=== PATIENT | male | born 1960 | race Caucasian/White ===

== ENCOUNTER 2019-09-18 20:47 | Emergency (ER) | payer OTHER ==
[2019-09-18 20:59] VITALS: BP 165/87; PULSE 74; TEMP 97.4; BMI 32.3
[2019-09-18] MEDS ORDERED: LIDOCAINE HCL 1%, 10 MG/ML (50 mL VIAL) SQ ONE (21:18)
[2019-09-18] MEDS ORDERED: LIDOCAINE HCL 1%, 10 MG/ML (20ML VIAL) ONE (21:25)
--- NOTE | 2019-09-18 22:14 | PDOC ---
History of Present Illness - General Chief Complaint: Abscess Boil Stated Complaint: SENT BY PCP/[facility] Time Seen by Provider: 09/18/19 21:13 - History of Present Illness Initial Comments: 09/18/19 22:10 58-year-old male without comorbidities presents for evaluation of an abscess on his left lateral thigh which is been there for about a week he has been on Keflex without relief he states it is getting worse. Past History - Past Medical History Allergies/Adverse Reactions: Allergies Allergy/AdvReac Type Severity Reaction Status Date / Time diclofenac Allergy Verified 09/18/19 20:57 Home Medications: Ambulatory Orders Sulfamethoxazole/Trimethoprim [Bactrim Ds -] 1 tab PO BID #14 tablet 09/18/19 COPD: No - Psycho Social/Smoking Cessation Hx Smoking History: Never smoked Hx Alcohol Use: No Drug/Substance Use Hx: No Review of Systems - Review of Systems Constitutional: No: Fever Integumentary: Yes: See HPI *Physical Exam - Vital Signs Last Vital Signs Temp Pulse Resp BP Pulse Ox 97.4 F L 74 20 165/87 96 09/18/19 20:57 09/18/19 20:57 09/18/19 20:57 09/18/19 20:57 09/18/19 20:57 - Physical Exam Comments: 09/18/19 22:11 There is about a 6 cm circumferential area of erythema with a ulcerated center with the purulent drainage. There is no fluctuance the area is indurated around the area of the ulcer. The remainder of the thigh and calf are soft and nontender Medical Decision Making - Medical Decision Making 09/18/19 22:11 This appears to be an abscess which has began to drain. The area is ulcerated. The area was anesthetized aseptically with 15 cc of 1% lidocaine the purulent material was removed and the area was scraped to its base and allowed to bleed. A wet-to-dry dressing was placed this was tolerated well Wet-to-dry dressing changes twice daily follow-up with general surgery patient was also placed on Bactrim in addition to the Keflex he is already taking. We will follow-up with him in the ER in 2 days and a referral to general surgery was also given. Wet-to-dry dressing changes twice daily Discharge - Discharge Information Problems reviewed: Yes Clinical Impression/Diagnosis: Abscess Condition: Stable Disposition: HOME - Admission No - Additional Discharge Information Prescriptions: Sulfamethoxazole/Trimethoprim [Bactrim Ds -] 1 tab PO BID #14 tablet - Follow up/Referral Referrals: Paco Tee MD [Staff Physician] - - Patient Discharge Instructions Patient Printed Discharge Instructions: DI for Incision and Drainage of a Skin Abscess Additional Instructions: Tylenol as directed for pain. Please start the antibiotic this evening and take the medication as directed. Return to the emergency room in 2 days for wound check. Sooner for problems develop. Wet-to-dry dressing changes as you was shown in the emergency room twice a day for the next 2 days. Also follow- up with general surgery in 3 to 4 days for further evaluation and treatment options. - Post Discharge Activity
== END 2019-09-18 22:21 | disposition home or self-care (01) ==
LOC: JERFT 20:47
PROC: 3E023BZ Introduction of Anesthetic Agent into Muscle, Percutaneous Approach (ICD-10-PCS; principal; 2019-09-18)
PROC: 0H9JXZZ Drainage of Left Upper Leg Skin, External Approach (ICD-10-PCS; 2019-09-18)
DX: L02.416 Cutaneous abscess of left lower limb (principal); L97.121 Non-pressure chronic ulcer of left thigh limited to breakdown of skin; Z88.8 Allergy status to other drugs, medicaments and biological substances
CPT/HCPCS: 99281-25

== ENCOUNTER 2019-09-20 11:53 | Emergency (ER) | payer OTHER ==
[2019-09-20 12:21] VITALS: BP 153/78; PULSE 62; TEMP 97.7; BMI 32.3
--- NOTE | 2019-09-20 12:38 | PDOC ---
History of Present Illness - General Chief Complaint: Revisit,Wound Recheck Stated Complaint: ABSCESS LF HIP Time Seen by Provider: 09/20/19 12:38 Past History - Past Medical History Allergies/Adverse Reactions: Allergies Allergy/AdvReac Type Severity Reaction Status Date / Time diclofenac Allergy Verified 09/20/19 12:21 Home Medications: Ambulatory Orders Sulfamethoxazole/Trimethoprim [Bactrim Ds -] 1 tab PO BID #14 tablet 09/18/19 COPD: No - Surgical History Appendectomy: Yes Cholecystectomy: (gallstones) - Psycho Social/Smoking Cessation Hx Smoking History: Never smoked Information on smoking cessation initiated: No Hx Alcohol Use: No Drug/Substance Use Hx: No *Physical Exam - Vital Signs Last Vital Signs Temp Pulse Resp BP Pulse Ox 97.7 F 62 18 153/78 97 09/20/19 12:18 09/20/19 12:18 09/20/19 12:18 09/20/19 12:18 09/20/19 12:18
--- NOTE | 2019-09-20 12:59 | PDOC ---
History of Present Illness - General Chief Complaint: Revisit,Wound Recheck Stated Complaint: ABSCESS LF HIP Time Seen by Provider: 09/20/19 12:38 - History of Present Illness Initial Comments: 09/20/19 12:54 58 y/o M presents for evaluation of a wound check on the lateral aspect of the L thigh, he states he is feeling better, no systemic symptoms Past History - Past Medical History Allergies/Adverse Reactions: Allergies Allergy/AdvReac Type Severity Reaction Status Date / Time diclofenac Allergy Verified 09/20/19 12:21 Home Medications: Ambulatory Orders Sulfamethoxazole/Trimethoprim [Bactrim Ds -] 1 tab PO BID #14 tablet 09/18/19 COPD: No - Surgical History Appendectomy: Yes Cholecystectomy: (gallstones) - Psycho Social/Smoking Cessation Hx Smoking History: Never smoked Information on smoking cessation initiated: No Hx Alcohol Use: No Drug/Substance Use Hx: No Review of Systems - Review of Systems Constitutional: No: Fever *Physical Exam - Vital Signs Last Vital Signs Temp Pulse Resp BP Pulse Ox 97.7 F 62 18 153/78 97 09/20/19 12:18 09/20/19 12:18 09/20/19 12:18 09/20/19 12:18 09/20/19 12:18 - Physical Exam Comments: 09/20/19 12:54 There is mild erythema and induration about the edges of the wound. The middle of the wound is granulating well. The thigh and calf are soft and no tender, NVID Medical Decision Making - Medical Decision Making 09/20/19 12:55 Wound is healing well. Continue with wet to dry dressing changes and PO ABX and f/u with general surgery in 2-3 days for a wound check Discharge - Discharge Information Problems reviewed: Yes Clinical Impression/Diagnosis: Visit for wound check Condition: Improved Disposition: HOME - Admission No - Follow up/Referral Referrals: Paco Tee MD [Staff Physician] - - Patient Discharge Instructions Additional Instructions: Continue with antibiotics as prescribed. Wet to dry dressing changes twice daily for the next 3 days, then go to once a day in the morning and leave the wound open to air as much as possible. Return to the emergency room should symptoms worsen. DO NOT APPLY ANY OINTMENTS OR CREAMS. Without fail, please follow up with general surgery in 2-3 days for further evaluation and treatment options. - Post Discharge Activity
== END 2019-09-20 13:05 | disposition home or self-care (01) ==
LOC: JERFT 11:53 → JER 11:53 → JERFT 13:05
DX: Z48.00 Encounter for change or removal of nonsurgical wound dressing (principal); Z88.8 Allergy status to other drugs, medicaments and biological substances
CPT/HCPCS: 99281-25

== ENCOUNTER 2020-11-12 17:00 | Inpatient (IN) | payer OTHER ==
[2020-11-12] MEDS ORDERED: morphine CARPU-JECT 2 MG/1 ML DISP.SYRIN IVPUSH ONE (18:12)
[2020-11-12] MEDS ORDERED: LACTATED RINGERS SOLUTION 1000 ML INFUS.BAG IV ONE (18:12)
[2020-11-12] MEDS ORDERED: MORPHINE SULFATE 2 MG/ML VIAL ONE (18:20)
[2020-11-12 18:53] LABS: HEMATOCRIT 40.7 % (35.4-49); HEMOGLOBIN 13.9 GM/dL (11.7-16.9); MCH 29.1 pg (25.7-33.7); MCHC 34.1 g/dl (32.0-35.9); MEAN CELL VOLUME 85.5 fl (80-96); MEAN PLT VOLUME 7.8 fl (7.5-11.1); PLATELET COUNT 474 K/MM3 (134-434); RBC 4.76 M/mm3 (4.00-5.60); RDW 13.3 % (11.9-15.9); WHITE BLOOD COUNT 9.7 K/mm3 (4.0-10.0)
[2020-11-12 19:00] LABS: INR 1.14 (0.83-1.09)
[2020-11-12 19:03] LABS: ACTIVATED PTT 27.7 SECONDS (25.2-36.5)
[2020-11-12 19:14] LABS: POTASSIUM 4.6 mmol/L (3.5-5.1)
[2020-11-12 19:15] LABS: CALCIUM 8.5 mg/dL (8.5-10.1)
[2020-11-12 19:16] LABS: ALBUMIN 2.8 g/dl (3.4-5.0); BLOOD UREA NITROGEN 16.8 mg/dL (7-18)
[2020-11-12 19:21] LABS: BILIRUBIN,TOTAL 0.2 mg/dL (0.2-1); TOT PROT 7.6 g/dl (6.4-8.2)
[2020-11-12] MEDS ORDERED: HEPARIN NA (PORCINE) 5,000 UNITS/ML 1ML VIAL IVPUSH PRN ×2 (20:51)
[2020-11-12] MEDS ORDERED: HEPARIN - 25,000 UNIT in SODIUM CHLORIDE 495 ML IV SCH (21:00)
[2020-11-12] MEDS ORDERED: HEPARIN INFUSION - 25,000 UNITS/500 ML INFUS.BAG IVPB ONE (22:42)
[2020-11-12] MEDS ORDERED: DEXAMETHASONE SOD PHOSPHATE 10 MG/1 ML VIAL IVPUSH ONE (23:10)
[2020-11-13] MEDS ORDERED: DEXAMETHASONE SOD PHOSPHATE 10 MG/1 ML VIAL ONE ×2 (00:34→10:05)
[2020-11-13 06:36] LABS: BASO % 0.2 % (0-2.0); EOS % 0.3 % (0-4.5); HEMATOCRIT 40.2 % (35.4-49); LYMPH % 7.1 % (8-40); MCH 29.4 pg (25.7-33.7); MCHC 34.8 g/dl (32.0-35.9); MEAN CELL VOLUME 84.5 fl (80-96); MEAN PLT VOLUME 7.6 fl (7.5-11.1); MONO % 2.7 % (3.8-10.2); NEUT % 89.7 % (42.8-82.8); PLATELET COUNT 489 K/MM3 (134-434); RBC 4.76 M/mm3 (4.00-5.60); RDW 13.4 % (11.9-15.9); WHITE BLOOD COUNT 7.9 K/mm3 (4.0-10.0)
[2020-11-13 06:59] LABS: INR 1.2 (0.83-1.09); PROTHROMBIN TIME (PATIENT) 14.7 SEC (9.7-13.0)
[2020-11-13 07:01] LABS: ACTIVATED PTT 30.2 SECONDS (25.2-36.5)
[2020-11-13 07:16] LABS: ALBUMIN 2.8 g/dl (3.4-5.0); BLOOD UREA NITROGEN 14.2 mg/dL (7-18); CALCIUM 8.9 mg/dL (8.5-10.1); MAGNESIUM 2.2 mg/dL (1.8-2.4)
[2020-11-13 07:19] LABS: CREATININE 0.8 mg/dL (0.55-1.3); PHOSPHOROUS 3.9 mg/dL (2.5-4.9)
[2020-11-13 07:21] LABS: TOT PROT 7.6 g/dl (6.4-8.2)
[2020-11-13] MEDS ORDERED: HEPARIN NA (PORCINE) 5,000 UNITS/ML 1ML VIAL ONE ×5 (07:47→16:33)
[2020-11-13] MEDS ORDERED: CHOLECALCIFEROL (VIT D3) 1,000 UNIT (25 MCG) TABLET PO SCH (10:00)
[2020-11-13] MEDS ORDERED: ZINC SULFATE 220 MG CAPSULE (FP) PO SCH (10:00)
[2020-11-13] MEDS ORDERED: DEXAMETHASONE SOD PHOSPHATE 10 MG/1 ML VIAL IVPUSH SCH (10:00)
[2020-11-13] MEDS ORDERED: FAMOTIDINE 20 MG/50 ML IVPB 20 MG/50 ML MG IVPB SCH (10:00)
[2020-11-13] MEDS ORDERED: DEXAMETHASONE SOD PHOSPHATE 20 MG/5 ML VIAL IVPB SCH (10:00)
[2020-11-13] MEDS ORDERED: ASCORBIC ACID 500 MG TABLET (FP) PO SCH (10:00)
[2020-11-13] MEDS ORDERED: FAMOTIDINE 20 MG/50 ML IVPB 20 MG/50 ML MG IVPB ONE (10:05)
[2020-11-13] MEDS ORDERED: FLU VACCINE (FLULAVAL) PF 60 MCG/0.5 ML SYRINGE 2020-2021 IM ONE (12:30)
[2020-11-13] MEDS ORDERED: PROPOFOL 20 ML ONE (13:28)
[2020-11-13] MEDS ORDERED: MIDAZOLAM HCL 2 MG/2 ML SINGLE DOSE VIAL ONE (13:28)
[2020-11-13] MEDS ORDERED: ROCURONIUM BROMIDE 50 MG/5 ML SYRINGE ONE (13:30)
[2020-11-13] MEDS ORDERED: EPHEDRINE SULFATE/0.9% NACL/PF 50 MG/10 ML SYRINGE NR ONE (13:31)
[2020-11-13] MEDS ORDERED: ceFAZolin SODIUM 1 GM VIAL IVPB ONE (13:32)
[2020-11-13] MEDS ORDERED: SODIUM BICARBONATE 8.4% - 50 ML ONE (15:33)
[2020-11-13] MEDS ORDERED: ALTEPLASE 2 MG VIAL CVP SCH (16:30)
[2020-11-13] MEDS ORDERED: HEPARIN INFUSION - 25,000 UNITS/500 ML INFUS.BAG IVPB ONE (17:07)
[2020-11-13] MEDS ORDERED: NITROGLYCERIN 25MG/D5W 250ML 25 MG/250 ML ML IVPB ONE (17:13)
[2020-11-13] MEDS ORDERED: NITROGLYCERIN 25MG/D5W 250ML 25 MG/250 ML ML IVPB SCH ×2 (18:30→18:32)
[2020-11-13] MEDS ORDERED: HEPARIN NA (PORCINE) 5,000 UNITS/ML 1ML VIAL IVPUSH PRN ×4 (18:37)
[2020-11-13] MEDS ORDERED: ACETAMINOPHEN 1000 MG/100 ML VIAL (NON FORMULARY) IVPB PRN (18:39)
[2020-11-13] MEDS ORDERED: HEPARIN INFUSION - 25,000 UNITS/500 ML INFUS.BAG IVPB SCH (18:45)
[2020-11-13] MEDS: SODIUM CHLORIDE 1,000 ML IV SCH (19:00)
[2020-11-13 20:25] LABS: POTASSIUM 4.7 mmol/L (3.5-5.1)
[2020-11-13 20:31] LABS: CREATININE 1.1 mg/dL (0.55-1.3)
[2020-11-13] MEDS ORDERED: CHLORHEXIDINE GLUCONATE 4% CLEANSER FOR DECOLONIZATION TP SCH (22:00)
[2020-11-13] MEDS: HEPARIN - 25,000 UNIT in SODIUM CHLORIDE 495 ML IV SCH (22:11)
[2020-11-13] MEDS: ZINC SULFATE 220 MG CAPSULE (FP) PO SCH (22:13)
[2020-11-13] MEDS: FAMOTIDINE 20 MG/50 ML IVPB 20 MG/50 ML MG IVPB SCH (22:13)
[2020-11-13] MEDS: MUPIROCIN 2% TOPICAL OINTMENT FOR DECOLONIZATION NS SCH (23:00)
[2020-11-14] MEDS: HEPARIN - 25,000 UNIT in SODIUM CHLORIDE 495 ML IV SCH ×2 (00:18→08:00)
[2020-11-14] MEDS: SODIUM CHLORIDE 1,000 ML IV SCH (03:00)
[2020-11-14] MEDS ORDERED: HEPARIN NA (PORCINE) 5,000 UNITS/ML 1ML VIAL ONE ×2 (06:12→06:17)
[2020-11-14] MEDS ORDERED: LIDOCAINE HCL 0.5%, 5 MG/ML (50mL SDVIAL) ONE (06:13)
[2020-11-14] MEDS ORDERED: PROPOFOL 20 ML ONE ×2 (06:18)
[2020-11-14 06:23] LABS: BASO % 0.1 % (0-2.0); HEMATOCRIT 36.1 % (35.4-49); HEMOGLOBIN 12.3 GM/dL (11.7-16.9); LYMPH % 7.9 % (8-40); MCH 29.1 pg (25.7-33.7); MCHC 34.1 g/dl (32.0-35.9); MEAN CELL VOLUME 85.2 fl (80-96); MEAN PLT VOLUME 7.5 fl (7.5-11.1); MONO % 10.1 % (3.8-10.2); NEUT % 81.9 % (42.8-82.8); PLATELET COUNT 477 K/MM3 (134-434); RBC 4.23 M/mm3 (4.00-5.60); RDW 13.2 % (11.9-15.9); WHITE BLOOD COUNT 13.3 K/mm3 (4.0-10.0)
[2020-11-14 06:37] LABS: POTASSIUM 4.6 mmol/L (3.5-5.1)
[2020-11-14 06:39] LABS: ALBUMIN 2.3 g/dl (3.4-5.0); BLOOD UREA NITROGEN 21.3 mg/dL (7-18); CALCIUM 8.2 mg/dL (8.5-10.1)
[2020-11-14 06:43] LABS: CREATININE 0.8 mg/dL (0.55-1.3)
[2020-11-14 06:44] LABS: BILIRUBIN,TOTAL 0.4 mg/dL (0.2-1); TOT PROT 6.4 g/dl (6.4-8.2)
[2020-11-14] MEDS ORDERED: ceFAZolin SODIUM 1 GM VIAL IVPB ONE (06:54)
[2020-11-14] MEDS ORDERED: MIDAZOLAM HCL 2 MG/2 ML SINGLE DOSE VIAL ONE (06:59)
[2020-11-14] MEDS ORDERED: LIDOCAINE HCL 1%, 10 MG/ML (20ML VIAL) INF ONE (07:07)
[2020-11-14] MEDS ORDERED: SODIUM CHLORIDE 0.9% P/F 10 ML VIAL IJ ONE (07:17)
[2020-11-14] MEDS ORDERED: IOHEXOL 300 MG/ML INFUS..BTL IV ONE (07:20)
[2020-11-14] MEDS: MUPIROCIN 2% TOPICAL OINTMENT FOR DECOLONIZATION NS SCH ×3 (10:22→21:10)
[2020-11-14] MEDS: HYDROmorphone HCl 2 MG/ML VIAL IVPB PRN ×2 (10:40→14:56)
[2020-11-14] MEDS ORDERED: PT OWN MED DRAWER 7, Y5N ONE ×2 (10:53→18:04)
[2020-11-14] MEDS: ZINC SULFATE 220 MG CAPSULE (FP) PO SCH ×2 (11:25→21:13)
[2020-11-14] MEDS: FAMOTIDINE 20 MG/50 ML IVPB 20 MG/50 ML MG IVPB SCH ×2 (11:25→21:13)
[2020-11-14] MEDS: CEFAZOLIN 1 GM/D5W 1 GM/50 ML BAG IVPB SCH ×2 (14:58→23:27)
[2020-11-14 19:46] LABS: INR 1.12 (0.83-1.09); PROTHROMBIN TIME (PATIENT) 13.7 SEC (9.7-13.0)
[2020-11-14 19:48] LABS: ACTIVATED PTT 65.7 SECONDS (25.2-36.5)
[2020-11-14] MEDS ORDERED: HEPARIN NA (PORCINE) 5,000 UNITS/ML 1ML VIAL IVPUSH PRN ×4 (19:52)
[2020-11-14] MEDS: CHLORHEXIDINE GLUCONATE 4% CLEANSER FOR DECOLONIZATION TP SCH (21:09)
[2020-11-14] MEDS ORDERED: CEFAZOLIN 1 GM/D5W 1 GM/50 ML BAG IVPB SCH (22:00)
[2020-11-14] MEDS ORDERED: MUPIROCIN 2% TOPICAL OINTMENT FOR DECOLONIZATION NS SCH (22:00)
[2020-11-14] MEDS ORDERED: CHLORHEXIDINE GLUCONATE 4% CLEANSER FOR DECOLONIZATION TP SCH (22:00)
[2020-11-14] MEDS ORDERED: guaiFENesin 200 MG/10 ML 10 ML UNIT-DOSE CUPS PO ONE (23:30)
[2020-11-15] MEDS: HYDROmorphone HCl 2 MG/ML VIAL IVPB PRN (00:29)
[2020-11-15] MEDS: CEFAZOLIN 1 GM/D5W 1 GM/50 ML BAG IVPB SCH ×3 (06:08→23:47)
[2020-11-15 07:38] LABS: BASO % 0.3 % (0-2.0); EOS % 0.7 % (0-4.5); HEMATOCRIT 37.5 % (35.4-49); HEMOGLOBIN 12.5 GM/dL (11.7-16.9); LYMPH % 17.6 % (8-40); MCH 28.5 pg (25.7-33.7); MCHC 33.4 g/dl (32.0-35.9); MEAN CELL VOLUME 85.4 fl (80-96); MEAN PLT VOLUME 7.8 fl (7.5-11.1); MONO % 15.5 % (3.8-10.2); NEUT % 65.9 % (42.8-82.8); PLATELET COUNT 437 K/MM3 (134-434); WHITE BLOOD COUNT 7.3 K/mm3 (4.0-10.0)
[2020-11-15 07:44] LABS: POTASSIUM 4.4 mmol/L (3.5-5.1)
[2020-11-15 08:03] LABS: CALCIUM 8.4 mg/dL (8.5-10.1)
[2020-11-15 08:04] LABS: BLOOD UREA NITROGEN 16.9 mg/dL (7-18)
[2020-11-15 08:07] LABS: CREATININE 0.9 mg/dL (0.55-1.3)
[2020-11-15] MEDS: FAMOTIDINE 20 MG/50 ML IVPB 20 MG/50 ML MG IVPB SCH ×2 (09:56→21:08)
[2020-11-15] MEDS: MUPIROCIN 2% TOPICAL OINTMENT FOR DECOLONIZATION NS SCH ×2 (09:56→21:07)
[2020-11-15] MEDS: HEPARIN - 25,000 UNIT in SODIUM CHLORIDE 495 ML IV SCH ×2 (09:56→18:23)
[2020-11-15] MEDS: ZINC SULFATE 220 MG CAPSULE (FP) PO SCH ×2 (09:56→21:07)
[2020-11-15] MEDS ORDERED: AMIODARONE HCL 150 MG/3 ML VIAL IVPUSH ONE (10:03)
[2020-11-15] MEDS ORDERED: AMIODARONE IN DEXTROSE,ISO-OSM 150 MG/100 ML BAG ONE (10:04)
[2020-11-15] MEDS ORDERED: AMIODARONE IN DEXTROSE,ISO-OSM 360 MG/200 ML BAG ONE (10:05)
[2020-11-15] MEDS ORDERED: AMIODARONE HCL INJECTION 450 MG in DEXTROSE 5%-WATER - 241 ML IVPB ONE (10:14)
[2020-11-15] MEDS ORDERED: AMIODARONE HCL INJECTION 450 MG in DEXTROSE 5%-WATER - 241 ML IVPB SCH (10:15)
[2020-11-15] MEDS ORDERED: AMIODARONE IN DEXTROSE,ISO-OSM 150 MG/100 ML BAG IVPB ONE (10:15)
[2020-11-15] MEDS ORDERED: AMIODARONE IN DEXTROSE,ISO-OSM 360 MG/200 ML BAG IVPB SCH (10:30)
[2020-11-15] MEDS ORDERED: AMIODARONE IN DEXTROSE,ISO-OSM 360 MG/200 ML BAG IVPB ONE (10:30)
[2020-11-15 14:42] LABS: CHLORIDE 104 mmol/L (98-107); SODIUM 136 mmol/L (136-145)
[2020-11-15 14:45] LABS: CALCIUM 8.6 mg/dL (8.5-10.1)
[2020-11-15 14:46] LABS: ALBUMIN 2.7 g/dl (3.4-5.0); ANION GAP 6 MMOL/L (8-16); BLOOD UREA NITROGEN 16.5 mg/dL (7-18); CO2 26 mmol/L (21-32); GLUCOSE,RANDOM 115 mg/dL (74-106); MAGNESIUM 2.2 mg/dL (1.8-2.4)
[2020-11-15 14:49] LABS: CREATININE 0.9 mg/dL (0.55-1.3); SGOT/AST 117 U/L (15-37); SGPT/ALT 227 U/L (13-61)
[2020-11-15 14:50] LABS: BILIRUBIN,TOTAL 0.3 mg/dL (0.2-1)
[2020-11-15 15:02] LABS: ALK PHOS 306 U/L (45-117)
[2020-11-15] MEDS: AMIODARONE IN DEXTROSE,ISO-OSM 360 MG/200 ML BAG IVPB SCH (19:05)
[2020-11-15] MEDS: CHLORHEXIDINE GLUCONATE 4% CLEANSER FOR DECOLONIZATION TP SCH (21:07)
[2020-11-16] MEDS: AMIODARONE IN DEXTROSE,ISO-OSM 360 MG/200 ML BAG IVPB SCH (01:00)
[2020-11-16] MEDS: CEFAZOLIN 1 GM/D5W 1 GM/50 ML BAG IVPB SCH ×2 (06:11→14:44)
[2020-11-16 07:15] LABS: HEMATOCRIT 42.1 % (35.4-49); HEMOGLOBIN 14.5 GM/dL (11.7-16.9); MCH 29.3 pg (25.7-33.7); MCHC 34.5 g/dl (32.0-35.9); MEAN CELL VOLUME 85.1 fl (80-96); MEAN PLT VOLUME 7.6 fl (7.5-11.1); PLATELET COUNT 479 K/MM3 (134-434); RBC 4.95 M/mm3 (4.00-5.60); RDW 13.2 % (11.9-15.9)
[2020-11-16] MEDS: HEPARIN - 25,000 UNIT in SODIUM CHLORIDE 495 ML IV SCH (08:34)
[2020-11-16] MEDS: ZINC SULFATE 220 MG CAPSULE (FP) PO SCH ×2 (09:08→21:24)
[2020-11-16] MEDS: FAMOTIDINE 20 MG/50 ML IVPB 20 MG/50 ML MG IVPB SCH ×2 (09:08→21:24)
[2020-11-16] MEDS: MUPIROCIN 2% TOPICAL OINTMENT FOR DECOLONIZATION NS SCH ×2 (09:08→21:24)
[2020-11-16] MEDS: METOPROLOL TARTRATE 25 MG TABLET (FP) PO SCH ×2 (12:46→21:00)
[2020-11-16] MEDS: HYDROmorphone HCl 2 MG/ML VIAL IVPB PRN (21:12)
[2020-11-16] MEDS: CHLORHEXIDINE GLUCONATE 4% CLEANSER FOR DECOLONIZATION TP SCH (21:24)
[2020-11-16] MEDS: APIXABAN 5 MG TABLET PO SCH (23:33)
[2020-11-17 07:18] LABS: HEMATOCRIT 42.1 % (35.4-49); HEMOGLOBIN 14.4 GM/dL (11.7-16.9); MCHC 34.1 g/dl (32.0-35.9); MEAN PLT VOLUME 7.6 fl (7.5-11.1); PLATELET COUNT 460 K/MM3 (134-434); RBC 4.95 M/mm3 (4.00-5.60); RDW 13.1 % (11.9-15.9); WHITE BLOOD COUNT 10.1 K/mm3 (4.0-10.0)
[2020-11-17 07:39] LABS: POTASSIUM 4.6 mmol/L (3.5-5.1)
[2020-11-17 07:42] LABS: CALCIUM 8.5 mg/dL (8.5-10.1)
[2020-11-17 07:43] LABS: ALBUMIN 2.6 g/dl (3.4-5.0); BLOOD UREA NITROGEN 17.8 mg/dL (7-18); MAGNESIUM 2.4 mg/dL (1.8-2.4)
[2020-11-17 07:46] LABS: CREATININE 0.9 mg/dL (0.55-1.3); PHOSPHOROUS 3.2 mg/dL (2.5-4.9)
[2020-11-17 07:47] LABS: BILIRUBIN,TOTAL 0.8 mg/dL (0.2-1); TOT PROT 6.8 g/dl (6.4-8.2)
[2020-11-17] MEDS: APIXABAN 5 MG TABLET PO SCH ×2 (09:56→22:27)
[2020-11-17] MEDS: MUPIROCIN 2% TOPICAL OINTMENT FOR DECOLONIZATION NS SCH ×2 (09:56→22:24)
[2020-11-17] MEDS: METOPROLOL TARTRATE 25 MG TABLET (FP) PO SCH ×2 (09:56→22:27)
[2020-11-17] MEDS: ZINC SULFATE 220 MG CAPSULE (FP) PO SCH ×2 (09:56→22:27)
[2020-11-17] MEDS: FAMOTIDINE 20 MG/50 ML IVPB 20 MG/50 ML MG IVPB SCH ×2 (09:56→22:27)
[2020-11-17] MEDS: oxyCODONE HCL 5 MG TABLET PO PRN ×2 (14:29→20:30)
[2020-11-17] MEDS: CHLORHEXIDINE GLUCONATE 4% CLEANSER FOR DECOLONIZATION TP SCH (22:27)
[2020-11-18] MEDS: oxyCODONE HCL 5 MG TABLET PO PRN ×2 (06:30→17:19)
[2020-11-18 07:54] LABS: HEMOGLOBIN 14.8 GM/dL (11.7-16.9); MCH 29.3 pg (25.7-33.7); MCHC 34.3 g/dl (32.0-35.9); MEAN CELL VOLUME 85.5 fl (80-96); MEAN PLT VOLUME 7.5 fl (7.5-11.1); PLATELET COUNT 448 K/MM3 (134-434); RBC 5.03 M/mm3 (4.00-5.60); RDW 13.5 % (11.9-15.9)
[2020-11-18 08:06] LABS: POTASSIUM 4.8 mmol/L (3.5-5.1)
[2020-11-18 08:23] LABS: ALBUMIN 2.9 g/dl (3.4-5.0); BLOOD UREA NITROGEN 19.2 mg/dL (7-18)
[2020-11-18 08:26] LABS: BILIRUBIN,TOTAL 0.7 mg/dL (0.2-1)
[2020-11-18 08:27] LABS: TOT PROT 7.1 g/dl (6.4-8.2)
[2020-11-18] MEDS ORDERED: HEPARIN NA (PORCINE) 5,000 UNITS/ML 1ML VIAL IVPUSH PRN ×4 (09:16→10:38)
[2020-11-18] MEDS ORDERED: HEPARIN NA (PORCINE) 5,000 UNITS/ML 1ML VIAL IVPUSH ONE ×2 (09:20→10:36)
[2020-11-18] MEDS ORDERED: HEPARIN INFUSION - 25,000 UNITS/500 ML INFUS.BAG IVPB SCH ×2 (09:30→10:45)
[2020-11-18] MEDS ORDERED: FLU VACCINE (FLULAVAL) PF 60 MCG/0.5 ML SYRINGE 2020-2021 IM ONE (10:19)
[2020-11-18] MEDS: FAMOTIDINE 20 MG/50 ML IVPB 20 MG/50 ML MG IVPB SCH ×2 (10:53→21:27)
[2020-11-18] MEDS: MUPIROCIN 2% TOPICAL OINTMENT FOR DECOLONIZATION NS SCH ×2 (10:53→21:15)
[2020-11-18] MEDS: ZINC SULFATE 220 MG CAPSULE (FP) PO SCH ×2 (10:53→21:27)
[2020-11-18] MEDS: METOPROLOL TARTRATE 25 MG TABLET (FP) PO SCH ×2 (10:53→21:27)
[2020-11-18] MEDS: HEPARIN INFUSION - 25,000 UNITS/500 ML INFUS.BAG IVPB SCH ×3 (11:35→18:45)
[2020-11-18] MEDS ORDERED: ACETAMINOPHEN 500 MG TABLET (FP) PO ONE (20:34)
[2020-11-18] MEDS: CHLORHEXIDINE GLUCONATE 4% CLEANSER FOR DECOLONIZATION TP SCH (21:15)
[2020-11-19] MEDS: oxyCODONE HCL 5 MG TABLET PO PRN ×2 (00:16→06:58)
[2020-11-19] MEDS: HEPARIN INFUSION - 25,000 UNITS/500 ML INFUS.BAG IVPB SCH ×3 (01:10→13:00)
[2020-11-19] MEDS ORDERED: MORPHINE SULFATE 2 MG/ML VIAL IVPUSH ONE (03:18)
[2020-11-19] MEDS ORDERED: MORPHINE SULFATE 2 MG/ML VIAL IVPUSH PRN ×2 (06:06→13:28)
[2020-11-19] MEDS ORDERED: HEPARIN NA (PORCINE) 5,000 UNITS/ML 1ML VIAL ONE ×2 (08:16→11:00)
[2020-11-19] MEDS ORDERED: LIDOCAINE HCL 1%, 10 MG/ML (20ML VIAL) ONE (08:16)
[2020-11-19 08:22] LABS: HEMATOCRIT 43.1 % (35.4-49); HEMOGLOBIN 14.6 GM/dL (11.7-16.9); MCH 29.2 pg (25.7-33.7); MCHC 33.8 g/dl (32.0-35.9); MEAN CELL VOLUME 86.4 fl (80-96); MEAN PLT VOLUME 7.8 fl (7.5-11.1); PLATELET COUNT 445 K/MM3 (134-434); RBC 4.99 M/mm3 (4.00-5.60); RDW 13.1 % (11.9-15.9); WHITE BLOOD COUNT 10.4 K/mm3 (4.0-10.0)
[2020-11-19 08:37] LABS: POTASSIUM 4.4 mmol/L (3.5-5.1)
[2020-11-19 08:54] LABS: ALBUMIN 3.1 g/dl (3.4-5.0); MAGNESIUM 2.5 mg/dL (1.8-2.4)
[2020-11-19 08:55] LABS: BLOOD UREA NITROGEN 19.8 mg/dL (7-18)
[2020-11-19 08:57] LABS: CREATININE 1.1 mg/dL (0.55-1.3); PHOSPHOROUS 3.7 mg/dL (2.5-4.9)
[2020-11-19 08:59] LABS: TOT PROT 7.4 g/dl (6.4-8.2)
[2020-11-19] MEDS ORDERED: fentaNYL CITRATE 250 MCG/5 ML VIAL ONE (10:10)
[2020-11-19] MEDS ORDERED: MIDAZOLAM HCL 2 MG/2 ML SINGLE DOSE VIAL ONE ×2 (10:11)
[2020-11-19] MEDS ORDERED: PROPOFOL 20 ML ONE ×3 (10:11→11:40)
[2020-11-19] MEDS ORDERED: LIDOCAINE HCL 1%, 10 MG/ML (20ML VIAL) NR ONE ×2 (10:36)
[2020-11-19] MEDS ORDERED: DEXAMETHASONE SOD PHOSPHATE 4 MG/1 ML VIAL ONE (10:41)
[2020-11-19] MEDS ORDERED: PAPAVERINE HCL 30 MG/1 ML 10 ML VIAL NR ONE (11:00)
[2020-11-19] MEDS ORDERED: HYDROmorphone HCl 2 MG/ML VIAL ONE (11:04)
[2020-11-19] MEDS ORDERED: POVIDONE-IODINE OINTMENT 10% - 28.4 GM TUBE ONE (11:54)
[2020-11-19] MEDS ORDERED: POVIDONE-IODINE OINTMENT 10% - 28.4 GM TUBE TP ONE (12:00)
[2020-11-19] MEDS ORDERED: ONDANSETRON 4 MG/2 ML VIAL IVPUSH PRN (12:27)
[2020-11-19] MEDS ORDERED: HEPARIN INFUSION - 25,000 UNITS/500 ML INFUS.BAG IVPB ONE (12:31)
[2020-11-19] MEDS ORDERED: HEPARIN NA (PORCINE) 5,000 UNITS/ML 1ML VIAL IVPUSH PRN ×4 (13:28)
[2020-11-19 20:04] VITALS: BMI 34.2
[2020-11-19] MEDS: ZINC SULFATE 220 MG CAPSULE (FP) PO SCH (22:09)
[2020-11-19] MEDS: METOPROLOL TARTRATE 25 MG TABLET (FP) PO SCH (22:09)
[2020-11-19] MEDS: FAMOTIDINE 20 MG/50 ML IVPB 20 MG/50 ML MG IVPB SCH (22:09)
[2020-11-20] MEDS: HEPARIN INFUSION - 25,000 UNITS/500 ML INFUS.BAG IVPB SCH ×3 (00:18→16:45)
[2020-11-20] MEDS: oxyCODONE HCL 5 MG TABLET PO PRN ×3 (03:23→19:54)
[2020-11-20 07:28] LABS: HEMOGLOBIN 12.9 GM/dL (11.7-16.9); MCH 28.9 pg (25.7-33.7); MCHC 33.1 g/dl (32.0-35.9); MEAN CELL VOLUME 87.2 fl (80-96); MEAN PLT VOLUME 8.3 fl (7.5-11.1); PLATELET COUNT 369 K/MM3 (134-434); RBC 4.47 M/mm3 (4.00-5.60); RDW 13.5 % (11.9-15.9); WHITE BLOOD COUNT 11.8 K/mm3 (4.0-10.0)
[2020-11-20 07:52] LABS: POTASSIUM 4.8 mmol/L (3.5-5.1)
[2020-11-20 07:58] LABS: ALBUMIN 2.8 g/dl (3.4-5.0); CALCIUM 8.7 mg/dL (8.5-10.1)
[2020-11-20 07:59] LABS: BLOOD UREA NITROGEN 21.9 mg/dL (7-18); MAGNESIUM 2.3 mg/dL (1.8-2.4)
[2020-11-20 08:02] LABS: CREATININE 0.9 mg/dL (0.55-1.3); PHOSPHOROUS 3.2 mg/dL (2.5-4.9)
[2020-11-20 08:03] LABS: BILIRUBIN,TOTAL 0.4 mg/dL (0.2-1)
[2020-11-20 08:15] LABS: CHOLESTEROL 121 mg/dL (50-200)
[2020-11-20 08:16] LABS: TRIGLYCERIDES 107 mg/dL (0-150)
[2020-11-20 08:17] LABS: LDL CHOLESTEROL (ONLY SJRH) 70 mg/dL (5-100)
[2020-11-20 08:19] LABS: HDL CHOLESTEROL 38 mg/dL (40-60)
[2020-11-20] MEDS: FAMOTIDINE 20 MG/50 ML IVPB 20 MG/50 ML MG IVPB SCH ×2 (10:51→22:17)
[2020-11-20] MEDS: METOPROLOL TARTRATE 25 MG TABLET (FP) PO SCH ×2 (10:53→22:16)
[2020-11-20] MEDS: ZINC SULFATE 220 MG CAPSULE (FP) PO SCH ×2 (10:53→22:16)
[2020-11-20] MEDS: LACTATED RINGERS SOLUTION 1,000 ML IV SCH ×2 (15:00→22:15)
[2020-11-20] MEDS: ATORVASTATIN CA 20 MG TABLET (FP) PO SCH (22:16)
[2020-11-21] MEDS: HEPARIN INFUSION - 25,000 UNITS/500 ML INFUS.BAG IVPB SCH (06:03)
[2020-11-21 08:22] LABS: HEMATOCRIT 39.8 % (35.4-49); HEMOGLOBIN 13.8 GM/dL (11.7-16.9); MCH 29.6 pg (25.7-33.7); MCHC 34.6 g/dl (32.0-35.9); MEAN CELL VOLUME 85.6 fl (80-96); MEAN PLT VOLUME 8.3 fl (7.5-11.1); PLATELET COUNT 337 K/MM3 (134-434); RBC 4.66 M/mm3 (4.00-5.60); RDW 13.6 % (11.9-15.9); WHITE BLOOD COUNT 7.7 K/mm3 (4.0-10.0)
[2020-11-21 08:28] LABS: POTASSIUM 4.3 mmol/L (3.5-5.1)
[2020-11-21 08:31] LABS: BLOOD UREA NITROGEN 16.9 mg/dL (7-18)
[2020-11-21 08:36] LABS: TOT PROT 7.1 g/dl (6.4-8.2)
[2020-11-21] MEDS ORDERED: APIXABAN 5 MG TABLET PO SCH ×3 (10:00→10:30)
[2020-11-21] MEDS: METOPROLOL TARTRATE 25 MG TABLET (FP) PO SCH ×2 (10:58→21:11)
[2020-11-21] MEDS: ZINC SULFATE 220 MG CAPSULE (FP) PO SCH ×2 (10:58→21:12)
[2020-11-21] MEDS: FAMOTIDINE 20 MG/50 ML IVPB 20 MG/50 ML MG IVPB SCH (10:59)
[2020-11-21] MEDS: oxyCODONE HCL 5 MG TABLET PO PRN (19:58)
[2020-11-21] MEDS: ATORVASTATIN CA 20 MG TABLET (FP) PO SCH (21:11)
[2020-11-21] MEDS: FAMOTIDINE 20 MG TABLET PO SCH (21:12)
[2020-11-22] MEDS: oxyCODONE HCL 5 MG TABLET PO PRN ×3 (02:46→16:00)
[2020-11-22 07:10] LABS: HEMATOCRIT 41.5 % (35.4-49); HEMOGLOBIN 14.3 GM/dL (11.7-16.9); MCH 29.7 pg (25.7-33.7); MCHC 34.4 g/dl (32.0-35.9); MEAN CELL VOLUME 86.3 fl (80-96); MEAN PLT VOLUME 7.7 fl (7.5-11.1); PLATELET COUNT 329 K/MM3 (134-434); RBC 4.81 M/mm3 (4.00-5.60); RDW 13.8 % (11.9-15.9); WHITE BLOOD COUNT 8.3 K/mm3 (4.0-10.0)
[2020-11-22 07:34] LABS: POTASSIUM 4.5 mmol/L (3.5-5.1)
[2020-11-22 07:44] LABS: CALCIUM 9.2 mg/dL (8.5-10.1)
[2020-11-22 07:45] LABS: ALBUMIN 3.3 g/dl (3.4-5.0); BLOOD UREA NITROGEN 19.5 mg/dL (7-18); MAGNESIUM 2.3 mg/dL (1.8-2.4)
[2020-11-22 07:48] LABS: CREATININE 1.1 mg/dL (0.55-1.3)
[2020-11-22 07:49] LABS: BILIRUBIN,TOTAL 0.5 mg/dL (0.2-1); TOT PROT 7.4 g/dl (6.4-8.2)
[2020-11-22] MEDS: ZINC SULFATE 220 MG CAPSULE (FP) PO SCH (10:03)
[2020-11-22] MEDS: FAMOTIDINE 20 MG TABLET PO SCH (10:03)
[2020-11-22] MEDS: METOPROLOL TARTRATE 25 MG TABLET (FP) PO SCH (10:03)
[2020-11-22 15:21] VITALS: BP 132/75; PULSE 53; TEMP 97.8
[2020-11-24 17:06] LABS: DRVVT - 39.4 sec (0.0-47.0)
== END 2020-11-22 18:17 | disposition home or self-care (01) | DRG 181 ==
LOC: JER 17:00 → JERBED 21:00 → J6WEST-2 11-13 10:58 → JICU 11-13 20:44 → J4W 11-17 21:58
PROVIDERS: ADMIT Internal Medicine; ATTEND Internal Medicine
PROC: 047H04Z Dilation of Right External Iliac Artery with Drug-eluting Intraluminal Device, Open Approach (ICD-10-PCS; 2020-11-13)
PROC: 3E0336Z Introduction of Nutritional Substance into Peripheral Vein, Percutaneous Approach (ICD-10-PCS; 2020-11-13)
PROC: 0DH673Z Insertion of Infusion Device into Stomach, Via Natural or Artificial Opening (ICD-10-PCS; 2020-11-13)
PROC: 04HY33Z Insertion of Infusion Device into Lower Artery, Percutaneous Approach (ICD-10-PCS; 2020-11-13)
PROC: 04CK0ZZ Extirpation of Matter from Right Femoral Artery, Open Approach (ICD-10-PCS; principal; 2020-11-13 13:00)
PROC: B40FYZZ Plain Radiography of Right Lower Extremity Arteries using Other Contrast (ICD-10-PCS; 2020-11-14)
PROC: B40FYZZ Plain Radiography of Right Lower Extremity Arteries using Other Contrast (ICD-10-PCS; 2020-11-19)
PROC: 04CP0ZZ Extirpation of Matter from Right Anterior Tibial Artery, Open Approach (ICD-10-PCS; 2020-11-19)
DX: I74.3 Embolism and thrombosis of arteries of the lower extremities (principal); I74.5 Embolism and thrombosis of iliac artery; I70.201 Unspecified atherosclerosis of native arteries of extremities, right leg; I99.8 Other disorder of circulatory system; I48.0 Paroxysmal atrial fibrillation; D68.69 Other thrombophilia; E88.09 Other disorders of plasma-protein metabolism, not elsewhere classified; E66.9 Obesity, unspecified; Z68.34 Body mass index [BMI] 34.0-34.9, adult; R09.02 Hypoxemia; R94.5 Abnormal results of liver function studies; B94.8 Sequelae of other specified infectious and parasitic diseases; R05 Cough
CPT/HCPCS: 36415; 71045-TC-FY; 71046-TC-FY; 75635-TC; 76000-TC-FY; 76705-TC; 80048; 80053; 80061; 81240; 81241; 82550; 82553; 82728; 82962; 83036; 83605; 83615; 83721; 83735; 84100; 84443; 84484; 85025; 85027; 85379; 85610; 85613; 85730; 85732; 86850; 86900; 86901; 86922; 88304-TC; 93005; 93010; 93306-TC; 93926-TC; 93970-TC; 94760; 97116-GP; 97162-GP; 99291; C9803; G0008; J0131; J0282; J1100; J1644; Q2036; U0003

== ENCOUNTER 2022-05-18 04:27 | Day surgery (SDC) | payer OTHER ==
[2022-05-17 16:28] VITALS: BMI 37.2
[2022-05-18] MEDS ORDERED: FENTANYL CITRATE/PF 50 MCG/ML VIAL ONE ×2 (09:07)
[2022-05-18 09:50] VITALS: TEMP 97.1
[2022-05-18 11:04] VITALS: BP 138/79; PULSE 56; RESP 18
== END 2022-05-18 10:50 | disposition home or self-care (01) ==
LOC: JASU-ENDO 04:27
PROVIDERS: ATTEND Internal Medicine Gastroenterology
PROC: 0DB98ZX Excision of Duodenum, Via Natural or Artificial Opening Endoscopic, Diagnostic (ICD-10-PCS; 2022-05-18)
PROC: 0DB78ZX Excision of Stomach, Pylorus, Via Natural or Artificial Opening Endoscopic, Diagnostic (ICD-10-PCS; 2022-05-18)
PROC: 0DB48ZX Excision of Esophagogastric Junction, Via Natural or Artificial Opening Endoscopic, Diagnostic (ICD-10-PCS; 2022-05-18)
PROC: 0DBP8ZX Excision of Rectum, Via Natural or Artificial Opening Endoscopic, Diagnostic (ICD-10-PCS; principal; 2022-05-18 09:00)
DX: Z12.11 Encounter for screening for malignant neoplasm of colon (principal); K62.1 Rectal polyp; K57.30 Diverticulosis of large intestine without perforation or abscess without bleeding; K64.8 Other hemorrhoids; K29.71 Gastritis, unspecified, with bleeding; I10 Essential (primary) hypertension; K21.00 Gastro-esophageal reflux disease with esophagitis, without bleeding; K31.A0 Gastric intestinal metaplasia, unspecified; D64.9 Anemia, unspecified
CPT/HCPCS: 88305-TC; 88341-TC; 88342-TC